=== PATIENT | male | born 1990 | race Two or more races ===

== ENCOUNTER 2018-07-25 09:51 | Emergency (ER) | payer OTHER ==
[~2018-07-25] VITALS: Ht 175.3 cm; Wt 124.7 kg
[2018-07-25 10:03] VITALS: BP 155/80
--- NOTE | 2018-07-25 10:20 | PHYS DOC ---
Past Medical History Past Medical History: No Pertinent History Additional Past Medical Histor: BROKEN FINGER Past Surgical History: No Surgical History Alcohol Use: Occasionally Drug Use: None Adult General Chief Complaint Chief Complaint: FOOT INJURY PAIN HPI HPI 28-year-old male presents to ER via POV for complaints of one week history of left foot pain and swelling. Patient denies any known injury. Patient states he does climb ladders frequently during his workday. Pt reports he has had gradual worsening and swelling and increased pain with weightbearing. He reports he has been using [id number] ibuprofen and a crutch to help keep some of the weight off of his left foot. Pt reports he had past episode of possible gout in his rt foot- reports this feels different as he had pain in rt great toe. He reports pain in lt lateral side of top of foot. Review of Systems Review of Systems Constitutional: Denies fever or chills [] Respiratory: Denies cough or shortness of breath [] Musculoskeletal: Denies back pain. Reports left foot pain and swelling Integument: Denies rash or skin lesions [] Neurologic: Denies headache, focal weakness or sensory changes [] All other systems were reviewed and found to be within normal limits, except as documented in this note. Current Medications Current Medications Current Medications Medications (Trade) Dose Ordered Sig/Lazara Start Time Stop Time Status Last Admin Dose Admin Ketorolac Tromethamine (Toradol 15mg Vial) 15 mg 1X ONCE 07/25/18 12:00 07/25/18 12:01 DC 07/25/18 12:19 15 MG Prednisone (Prednisone) 50 mg 1X ONCE 07/25/18 12:00 07/25/18 12:01 DC 07/25/18 12:19 50 MG Allergies Allergies Allergies Coded Allergies Type Severity Reaction Last Updated Verified No Known Drug Allergies 07/25/18 No Physical Exam Physical Exam Constitutional: Well developed, well nourished, no acute distress, non-toxic appearance. [] HENT: Normocephalic, atraumatic, oropharynx moist, nose normal. [] Eyes: Pupils equal, conjunctiva normal, no discharge. [] Neck: Normal range of motion, supple Cardiovascular:Heart rate regular Lungs & Thorax: Resp. equal/nonlabored Skin: Warm, dry, no erythema, no rash. [] Back: Full ROM Extremities: No cyanosis, no clubbing, ROM intact. 2+ bilat dorsalis pedis/posterior tibial. Tender along lt side dorsal surface of foot w/swelling in foot/ankle- no ankle tenderness. No erythema/ecchymosis Neurologic: Alert and oriented X 3, normal motor function, normal sensory funct ion, no focal deficits noted. [] Psychologic: Affect normal, judgement normal, mood normal. [] Current Patient Data Vital Signs Vital Signs Date Time Temp Pulse Resp B/P (MAP) Pulse Ox O2 Delivery O2 Flow Rate FiO2 07/25/18 10:03 98.2 75 16 155/80 (105) 97 Room Air 98.2 Lab Values Laboratory Tests Test 07/25/18 12:03 White Blood Count 7.9 x10^3/uL (4.0-11.0) Red Blood Count 4.89 x10^6/uL (4.30-5.70) Hemoglobin 13.5 g/dL (13.0-17.5) Hematocrit 40.7 % (39.0-53.0) Mean Corpuscular Volume 83 fL (79-100) Mean Corpuscular Hemoglobin 28 pg (25-35) Mean Corpuscular Hemoglobin Concent 33 g/dL (31-37) Red Cell Distribution Width 13.0 % (11.5-14.5) Platelet Count 154 x10^3/uL (140-400) Neutrophils (%) (Auto) 65 % (31-73) Lymphocytes (%) (Auto) 26 % (24-48) Monocytes (%) (Auto) 7 % (0-9) Eosinophils (%) (Auto) 1 % (0-3) Basophils (%) (Auto) 1 % (0-3) Neutrophils # (Auto) 5.1 x10^3uL (1.8-7.7) Lymphocytes # (Auto) 2.0 x10^3/uL (1.0-4.8) Monocytes # (Auto) 0.6 x10^3/uL (0.0-1.1) Eosinophils # (Auto) 0.1 x10^3/uL (0.0-0.7) Basophils # (Auto) 0.1 x10^3/uL (0.0-0.2) Sodium Level 141 mmol/L (136-145) Potassium Level 4.6 mmol/L (3.5-5.1) Chloride Level 104 mmol/L (98-107) Carbon Dioxide Level 29 mmol/L (21-32) Anion Gap 8 (6-14) Blood Urea Nitrogen 13 mg/dL (8-26) Creatinine 1.0 mg/dL (0.7-1.3) Estimated GFR (Cockcroft-Gault) 89.6 Glucose Level 99 mg/dL (70-99) Uric Acid 7.2 mg/dL (3.5-7.2) Calcium Level 8.8 mg/dL (8.5-10.1) Laboratory Tests 07/25/18 12:03 Laboratory Tests 07/25/18 12:03 EKG EKG [] Radiology/Procedures Radiology/Procedures PROCEDURE: ANKLE LEFT 3V EXAM: 1. 3 views left ankle 2. 3 views left foot DATE: 07/25/2018 10:16 AM INDICATION: Left foot and ankle pain. Swelling. COMPARISON: No Prior FINDINGS: No evidence for acute fracture or dislocation. Ankle mortise is congruent. Talar dome is intact. Diffuse soft tissue swelling is seen about the left lower leg. IMPRESSION: 1. No evidence for acute fracture or dislocation. 2. Diffuse soft tissue swelling about the left lower leg and foot. Electronically signed by: Freddy Bradley MD (07/25/2018 11:04 AM) [id number] DICTATED and SIGNED BY: FREDDY BRADLEY MD DATE: 07/25/18 1104 PROCEDURE: VENOUS LOWER EXTREMITY LEFT LEFT LEG VENOUS DOPPLER STUDY: Clinical indications: Left foot swelling and pain. Findings: Duplex sonography (including avery scale evaluation and color flow and waveform spectral analysis) of the proximal aspect of the greater saphenous vein and the proximal aspect of the profunda femoral vein and the entire length of the common femoral and superficial femoral and popliteal veins and the tibioperoneal trunk and the proximal aspect of the posterior tibial and peroneal veins of the left leg was performed. Normal compressibility, augmentation of color Doppler flow after calf compression, and respiratory variation of Doppler flow is seen. Thus, there are no sonographic findings of deep venous thrombosis within these veins. Impression: There are no sonographic findings of deep venous thrombosis within the veins discussed above of the left lower extremity. Electronically signed by: Luis Manuel Reaves MD (07/25/2018 12:44 PM) [email or web address] DICTATED and SIGNED BY: LUIS MANUEL REAVES MD DATE: 07/25/18 1244 Course & Med Decision Making Course & Med Decision Making Pertinent Imaging studies reviewed. (See chart for details) 1345: Patient was evaluated in the ER for complaints of left foot pain and swelling. Patient had labs, x-ray, and ultrasound obtained. Labs were unremarkable, no DVT on ultrasound, and left foot negative for acute fracture. Patient was provided with dose of IV Toradol and oral prednisone and on reexamination he reports pain and swelling has improved and he does have less swelling on appearance and in left foot. He remains PMS intact in left lower extremity. Discussed home discharge plan with prescription for prednisone and patient to continue [id number] Tylenol and/or ibuprofen. Advised patient if symptoms persist he should follow-up with orthopedics for reevaluation will provide referral information on discharge paperwork. RICE acronym discussed. Education provided on signs and symptoms to return to ER. Discharge instructions were discussed. Patient to follow-up with primary care physician if symptoms persist or with any concerns. Pt has crutches at home to use. Dragon Disclaimer Dragon Disclaimer This electronic medical record was generated, in whole or in part, using a voice recognition dictation system. Departure Departure Impression: Primary Impression: Foot pain, left Disposition: HOME, SELF-CARE Condition: STABLE Referrals: NO PCP (PCP) Patient Instructions: Crutch Use, [id number], Elastic Bandage and RICE, Foot Sprain Additional Instructions: Use crutches for 1-2 days and rest your left foot if possible. Wear pablo wrap on left foot while walking. If symptoms persist follow-up with your primary care physician and or orthopedic doctor for reevaluation and further care. Tylenol and or ibuprofen as directed on container as needed for pain. Scripts Prednisone (PREDNISONE) 50 Mg Tablet 1 TAB PO DAILY, #4 TAB 0 Refills Start 07/26/18 Prov: ALLYSSA RILEY APRN 07/25/18 ALLYSSA RILEY APRN July 25, 2018 10:20
--- NOTE | 2018-07-25 11:07 | RAD ---
EXAM: 1. 3 views left ankle 2. 3 views left foot DATE: 07/25/2018 10:16 AM INDICATION: Left foot and ankle pain. Swelling. COMPARISON: No Prior FINDINGS: No evidence for acute fracture or dislocation. Ankle mortise is congruent. Talar dome is intact. Diffuse soft tissue swelling is seen about the left lower leg. IMPRESSION: 1. No evidence for acute fracture or dislocation. 2. Diffuse soft tissue swelling about the left lower leg and foot. Electronically signed by: Freddy Schofield MD (07/25/2018 11:04 AM) [id number]
--- NOTE | 2018-07-25 11:07 | RAD ---
EXAM: 1. 3 views left ankle 2. 3 views left foot DATE: 07/25/2018 10:16 AM INDICATION: Left foot and ankle pain. Swelling. COMPARISON: No Prior FINDINGS: No evidence for acute fracture or dislocation. Ankle mortise is congruent. Talar dome is intact. Diffuse soft tissue swelling is seen about the left lower leg. IMPRESSION: 1. No evidence for acute fracture or dislocation. 2. Diffuse soft tissue swelling about the left lower leg and foot. Electronically signed by: Freddy Schofield MD (07/25/2018 11:04 AM) [id number]
[2018-07-25 12:16] LABS: BASO # 0.1 x10^3/uL (0.0-0.2); BASO % 1 % (0-3); EOS # 0.1 x10^3/uL (0.0-0.7); EOS % 1 % (0-3); HEMATOCRIT 40.7 % (39.0-53.0); HEMOGLOBIN 13.5 g/dL (13.0-17.5); LYMPH % 26 % (24-48); MEAN CORPUSCULAR HEMOGLOBIN 28 pg (25-35); MEAN CORPUSCULAR HGB CONC 33 g/dL (31-37); MEAN CORPUSCULAR VOLUME 83 fL (79-100); MONO # 0.6 x10^3/uL (0.0-1.1); MONO % 7 % (0-9); NEUT # 5.1 x10^3uL (1.8-7.7); NEUT % 65 % (31-73); PLATELET COUNT 154 x10^3/uL (140-400); RED BLOOD COUNT 4.89 x10^6/uL (4.30-5.70); WHITE BLOOD COUNT 7.9 x10^3/uL (4.0-11.0)
[2018-07-25] MEDS: predniSONE 10 MG TABLET PO ONE (12:19)
[2018-07-25] MEDS: KETOROLAC 15 MG/ML VIAL. IV ONE (12:19)
[2018-07-25 12:23] LABS: CALCIUM 8.8 mg/dL (8.5-10.1); GFR 89.6; POTASSIUM 4.6 mmol/L (3.5-5.1)
[2018-07-25 12:26] LABS: URIC ACID 7.2 mg/dL (3.5-7.2)
--- NOTE | 2018-07-25 12:47 | RAD ---
LEFT LEG VENOUS DOPPLER STUDY: Clinical indications: Left foot swelling and pain. Findings: Duplex sonography (including avery scale evaluation and color flow and waveform spectral analysis) of the proximal aspect of the greater saphenous vein and the proximal aspect of the profunda femoral vein and the entire length of the common femoral and superficial femoral and popliteal veins and the tibioperoneal trunk and the proximal aspect of the posterior tibial and peroneal veins of the left leg was performed. Normal compressibility, augmentation of color Doppler flow after calf compression, and respiratory variation of Doppler flow is seen. Thus, there are no sonographic findings of deep venous thrombosis within these veins. Impression: There are no sonographic findings of deep venous thrombosis within the veins discussed above of the left lower extremity. Electronically signed by: Luis Manuel Reaves MD (07/25/2018 12:44 PM) [email or web address]
[2018-07-25] MEDS ORDERED: PRED50TA PO (13:55)
== END 2018-07-25 14:12 | disposition home or self-care (01) ==
LOC: ER 09:51
DX: M79.672 Pain in left foot (principal); M79.89 Other specified soft tissue disorders
CPT/HCPCS: 36415; 73610; 73630; 80048; 84550; 85025; 93971; 96374; 99285; J1885; J7512